=== PATIENT | male | born 1985 | race African-American/Black ===

== ENCOUNTER 2022-11-09 00:06 | Emergency (ER) | payer OTHER ==
[~2022-11-09] VITALS: Ht 182.9 cm; Wt 83.9 kg
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
--- NOTE | 2022-11-09 01:45 | NUR ---
TRAFFIC OPERATIONS MANAGER AT PT'S BEDSIDE
[2022-11-09] MEDS ORDERED: TDAP [DIPH/PERTUSSIS/TET] 0.5 ML VIAL IM ONE ×2 (01:48→02:00)
--- NOTE | 2022-11-09 01:55 | NUR ---
RAC #18 G S/L BLOOD COLLECTED AND SENT TO [facility]
--- NOTE | 2022-11-09 01:56 | NUR ---
EMT AT PT'S BEDSIDE FOR EKG
--- NOTE | 2022-11-09 02:07 | NUR ---
PT REFUSED TO HAVE URINE COLLECTION THROUGH IN AND OUT CATHETER. URINAL OFFERED.
[2022-11-09 02:15] LABS: BASOPHILS % (AUTO) 0.3 % (0.0-2.0); EOSINOPHILS % (AUTO) 0.5 % (0.0-6.0); HEMATOCRIT 45 % (39-51); HEMOGLOBIN 14.7 g/dL (13.5-17.5); LYMPHOCYTES # (AUTO) 1.3 K/uL (0.8-4.8); LYMPHOCYTES % (AUTO) 16.7 % (20.0-44.0); MEAN CORPUSCULAR HGB CONC 32 g/dl (31.0-36.0); MEAN CORPUSCULAR VOLUME 88 fL (80-96); MONOCYTES # (AUTO) 0.3 K/uL (0.1-1.30); MONOCYTES % (AUTO) 4.5 % (2.0-12.0); NEUTROPHILS # (AUTO) 5.9 K/uL (1.8-8.9); PLATELET COUNT (AUTO) 322 K/uL (150-450); RED BLOOD CELL COUNT(AUTO) 5.17 MIL/uL (4.5-6.0); WHITE BLOOD COUNT (AUTO) 7.6 K/uL (4.3-11.0)
[2022-11-09 02:23] LABS: SERUM AMMONIA 17 umol/L (11-32)
--- NOTE | 2022-11-09 02:28 | NUR ---
URINE SPECIMEN SENT TO LAB
[2022-11-09 02:30] LABS: ALANINE AMINOTRANSFERASE 34 U/L (12-78); ALBUMIN 4.1 g/dL (3.4-5.0); ALCOHOL, BLOOD 254 mg/dL (0-0); ALKALINE PHOSPHATASE 85 U/L (46-116); ASPARTATE AMINOTRANSFERASE 42 U/L (15-37); BILIRUBIN,DIRECT 0.2 mg/dL (0.0-0.2); BILIRUBIN,TOTAL 0.3 mg/dL (0.2-1.0); CALCIUM, SERUM 9.4 mg/dL (8.5-10.1); CARBON DIOXIDE 25 mmol/L (21-32); CHLORIDE 104 mmol/L (98-107); CREATININE 0.9 mg/dL (0.6-1.3); GLUCOSE 104 mg/dL (74-106); SODIUM SERUM 140 mmol/L (136-145); TOTAL PROTEIN, SERUM 8.1 g/dL (6.4-8.2); UREA NITROGEN, BLOOD 5 mg/dL (7-18)
--- NOTE | 2022-11-09 02:31 | NUR ---
EMT AT PT'S BEDSIDE TO CLEAN WOUND
[2022-11-09 02:40] LABS: ACETAMINOPHEN < 10 ug/ml (10-30)
--- NOTE | 2022-11-09 02:57 | NUR ---
PT TAKEN TO CT VIA LUCINA
--- NOTE | 2022-11-09 02:57 | NUR ---
BROUGHT TO CT DEPT
[2022-11-09 03:27] LABS: BILIRUBIN,URINE NEGATIVE (NEGATIVE); COLOR,URINE YELLOW (YELLOW); LEUKOCYTE ESTERASE ,URINE NEGATIVE (NEGATIVE); NITRITE, URINE NEGATIVE (NEGATIVE); PROTEIN,URINE NEGATIVE (NEGATIVE); UGLUCOSE NEGATIVE (NEGATIVE); UROBILINOGEN,URINE 0.2 EU/dL (0.2)
[2022-11-09 03:41] LABS: BACTERIA,URINE Rare /HPF (None Seen); SQUAMOUS EPITHELIAL CELL,UR Few /HPF (None Seen); WBC,URINE 0-2 /HPF (0-3)
--- NOTE | 2022-11-09 03:41 | NUR ---
CALLED [facility]; ESTIMATED TIME FOR REPORT 1 HOUR
[2022-11-09 06:44] VITALS: BP 141/81
--- NOTE | 2022-11-09 06:44 | NUR ---
Patient discharged to home in stable condition. Written and verbal after care instructions given. Patient verbalizes understanding of instruction. IV removed. Catheter intact and site benign. Pressure and 4x4 applied to site. No bleeding noted.
== END 2022-11-09 07:01 | disposition home or self-care (01) ==
LOC: ER 00:12
DX: S61.212A Laceration without foreign body of right middle finger without damage to nail, initial encounter (principal); S00.81XA Abrasion of other part of head, initial encounter; F10.129 Alcohol abuse with intoxication, unspecified; Y09 Assault by unspecified means; Y93.89 Activity, other specified; Y92.89 Other specified places as the place of occurrence of the external cause; Y99.8 Other external cause status; Y90.8 Blood alcohol level of 240 mg/100 ml or more
CPT/HCPCS: 12001; 99285; 90471; 93005; 90715; 71045; 73130; 72125; 70450; 82140; 85025; 80048; 80076; 81001; 36415; 84484 ×2; 85730; 82962; 80143; 80320; 80307; L0172; G0480